=== PATIENT | male | born 1990 | race African-American/Black ===

== ENCOUNTER 2018-04-12 10:21 | Emergency (ER) | payer OTHER, MEDICAID ==
[~2018-04-12] VITALS: Ht 182.9 cm; Wt 72.6 kg
--- NOTE | 2018-04-12 10:30 | NUR ---
PT BIB [facility], C/O SEIZURE, PT IS AOX4, NOT IN RESPIRATORY DISTRESS, V/S STABLE, KEPT RESTED AND COMFORTABLE, AWAITING ER MD.
[2018-04-12] MEDS ORDERED: IBUPROFEN 600 MG TABLET PO ONE ×2 (11:00→11:06)
[2018-04-12] MEDS ORDERED: LORAZEPAM 1 MG TABLET PO ONE (11:00)
--- NOTE | 2018-04-12 11:00 | NUR ---
DR. STOVALL AT BEDSIDE FOR EVAL.
[2018-04-12] MEDS ORDERED: LORAZEPAM 1 MG TABLET ONE (11:06)
--- NOTE | 2018-04-12 11:11 | NUR ---
Patient discharged to [facility] custody in stable condition. Written and verbal after care instructions given. Patient verbalizes understanding of instruction.
[2018-04-12 11:18] VITALS: BP 112/62
== END 2018-04-12 11:19 ==
LOC: ER 10:26
DX: F10.239 Alcohol dependence with withdrawal, unspecified (principal); R56.9 Unspecified convulsions; Y90.9 Presence of alcohol in blood, level not specified; Z88.1 Allergy status to other antibiotic agents
CPT/HCPCS: A4606; Z7610